=== PATIENT | male | born 1980 | race African-American/Black ===

== ENCOUNTER 2019-06-12 18:29 | Inpatient (IN) | payer MEDICAID ==
[~2019-06-12] VITALS: Ht 170.2 cm; Wt 63.1 kg
[2019-06-12] MEDS ORDERED: SODIUM CHLORIDE 0.9% 1,000 ML IV ONE (19:15)
[2019-06-12] MEDS ORDERED: cloNIDine HCL 0.1 MG TAB PO ONE (19:15)
[2019-06-12] MEDS ORDERED: ONDANSETRON HCL 4 MG/2 ML VIAL IV ONE (19:15)
[2019-06-12 19:38] LABS: Basophils # (auto) 0.1 uL; Basophils % (auto) 0.8 % (0.0-2.0); Eosinophils # (auto) 0.1 uL; Eosinophils % (auto) 0.4 % (0.0-7.0); Hematocrit 52.4 % (41.0-53.0); Hemoglobin 17.3 g/dL (13.5-17.5); Lymphocytes # (auto) 2.7 uL; Mean Corpuscular Hemoglobin 28.9 pg (28.0-32.0); Mean Corpuscular Volume 87.4 fL (80.0-100.0); Monocytes # (auto) 1.6 uL; Monocytes % (auto) 9.6 % (0.0-12.0); Neutrophils # (auto) 12.3 uL; Neutrophils % (auto) 73.2 % (37.0-80.0); Nucleated Red Blood Cells % 0.1 %; Platelet Count (auto) 377 10^3/uL (140-450); Red Cell Distribution Width 14.7 % (11.8-14.3); White Blood Cell 16.8 10^3/uL (4.4-10.8)
[2019-06-12 19:57] LABS: Anion Gap 19 (5-15); Blood Urea Nitrogen 19 mg/dL (7-18); Calcium 9.2 mg/dL (8.5-10.1); Carbon Dioxide 18 mmol/L (21-32); Chloride 94 mmol/L (98-107); Potassium 3.3 mmol/L (3.5-5.1); Sodium 131 mmol/L (136-145)
[2019-06-12 19:59] LABS: Amylase 46 U/L (25-115); Lipase 171 U/L (73-393)
[2019-06-12 20:00] LABS: Alanine Aminotransferase 20 U/L (16-61); Aspartate Aminotransferase 9 U/L (15-37); BUN/Creatinine Ratio 15.2; GFR African American 84 mL/min; GFR Non-African American 69 mL/min
[2019-06-12 20:07] LABS: Alkaline Phosphatase 103 U/L (45-117); Total Protein 8.3 g/dL (6.4-8.2)
[2019-06-12 20:09] LABS: Glucose 418 mg/dL (74-106)
[2019-06-12] MEDS ORDERED: InsuLIN REG 1unit/0.01ml Soln (100units/ml) IV ONE (20:45)
[2019-06-12] MEDS ORDERED: InsuLIN R (HUMAN) 100 UNITS in SODIUM CHL 0.9% 99 ML IV SCH (21:01)
[2019-06-12] MEDS ORDERED: D5W/SOD CHL 0.45%/KCL 20MEQ 1,000 ML IV SCH (21:01)
[2019-06-12] MEDS ORDERED: DEXTROSE (50%) 50ML SYRG IV PRN (21:15)
[2019-06-12] MEDS ORDERED: INSULIN NPH Isophane (HUMAN) 1unit/0.01ml Susp(100units/ml) SC ONE (21:27)
[2019-06-12 21:31] LABS: Magnesium 2.5 mg/dL (1.6-2.6)
[2019-06-12] MEDS: SODIUM CHLORIDE 0.9% 1,000 ML IV SCH ×2 (21:57→23:12)
[2019-06-12] MEDS ORDERED: InsuLIN REG 1unit/0.01ml Soln (100units/ml) ONE (22:00)
[2019-06-12] MEDS ORDERED: SOD CHL 0.9%/ KCL 20MEQ 1,000 ML IV ONE (22:09)
[2019-06-12] MEDS: SOD CHL 0.9%/ KCL 20MEQ 1,000 ML IV SCH (22:20)
[2019-06-12] MEDS: ACCU-CHEK COMFORT CURVE STRIP VI SCH (22:55)
[2019-06-12] MEDS ORDERED: HYDROcodone-ACET 5/325MG TAB PO PRN (23:00)
[2019-06-12] MEDS ORDERED: ONDANSETRON HCL 4 MG/2 ML VIAL IV PRN (23:00)
[2019-06-12] MEDS ORDERED: ACETAMINOPHEN 325 MG TAB PO PRN (23:00)
[2019-06-12 23:39] LABS: BUN/Creatinine Ratio 14.9; Potassium 3.3 mmol/L (3.5-5.1)
[2019-06-13] MEDS: ACCU-CHEK COMFORT CURVE STRIP VI SCH ×7 (01:39→18:14)
[2019-06-13 03:17] LABS: BUN/Creatinine Ratio 16.5; Calcium 7.8 mg/dL (8.5-10.1); Potassium 4.1 mmol/L (3.5-5.1)
[2019-06-13] MEDS: SOD CHL 0.9%/ KCL 20MEQ 1,000 ML IV SCH (04:05)
[2019-06-13] MEDS ORDERED: INSULIN LANTUS (GLARGINE) 1 /0.01ml (100units/ml) SC ONE (05:45)
[2019-06-13] MEDS ORDERED: SODIUM CHLORIDE 0.9% 1,000 ML IV SCH (07:00)
[2019-06-13] MEDS ORDERED: DEXTROSE (50%) 50ML SYRG IV PRN (07:00)
[2019-06-13 09:43] LABS: BUN/Creatinine Ratio 14.9; Calcium 7.9 mg/dL (8.5-10.1); Potassium 3.8 mmol/L (3.5-5.1)
[2019-06-13] MEDS ORDERED: MORPHINE SULF(PF) 0.5MG/ML 10ML VIAL ONE (10:01)
[2019-06-13 10:30] LABS: Alcohol, Urine < 3.0 mg/dL (0-5); Amphetamine Screen, Urine NEGATIVE (NEGATIVE); Barbiturate Scree,Urine NEGATIVE (NEGATIVE); Benzodiazephine Screen, Urine NEGATIVE (NEGATIVE); Cannabinoid Screen, Urine POSITIVE (NEGATIVE); Cocaine Screen, Urine NEGATIVE (NEGATIVE); Opiate Scree,Urine POSITIVE (NEGATIVE); Phencyclidine Screen, Urine NEGATIVE (NEGATIVE)
[2019-06-13] MEDS ORDERED: LISINOPRIL 20 MG TAB PO ONE (10:30)
[2019-06-13] MEDS ORDERED: amLODIPine BESYLATE 5 MG TAB PO ONE (10:30)
[2019-06-13] MEDS ORDERED: METOPROLOL TARTRATE 1MG/1ML-5ML VIAL IV PRN (10:30)
[2019-06-13 10:39] LABS: Urine Bacteria NONE SEEN /hpf (None Seen); Urine Blood Negative /uL (Negative); Urine Mucus FEW (None Seen); Urine Specific Gravity 1.026 (1.001-1.035); Urine WBC 5 /hpf (0 - 3)
[2019-06-13 11:02] LABS: Cholesterol 171 mg/dL (< 200); Triglycerides 210 mg/dL (< 150)
[2019-06-13 11:06] LABS: HDL Cholesterol 37 mg/dL (40-59); LDL Cholesterol 114 mg/dL (< 100)
[2019-06-13] MEDS: InsuLIN REG 1unit/0.01ml Soln (100units/ml) SC SCH ×2 (12:20→18:14)
[2019-06-13 15:31] LABS: Calcium 8.3 mg/dL (8.5-10.1); Potassium 3.4 mmol/L (3.5-5.1)
[2019-06-13 15:33] LABS: BUN/Creatinine Ratio 13.3
[2019-06-13 17:00] VITALS: BP 149/97
--- NOTE | 2019-06-13 17:05 | NUR ---
MS admit from ER CLEVELAND SANCHEZ admitted to tele/MS after SBAR received. Patient oriented to ANNABEL WEISS, RN primary RN, tele unit, room 287, bed A, and unit policies regarding patient care and visiting hours. Patient weighed by bedscale and encouraged to call if they need something. All questions and concerns addressed, patient verbalized understanding.
--- NOTE | 2019-06-13 17:24 | NUR ---
PATIENT RESTING IN BED, VS STABLE, NO C/O PAIN. PATIENT REPORTING NAUSEA ON AND OFF THROUGHOUT THE DAY. SUCTION SET UP AT BEDSIDE. BED IN LOWEST LOCKED POSITION. CALL LIGHT EDUCATION GIVEN, PATIENT WAS ABLE TO RETURN DEMONSTRATION. WILL CONTINUE TO MONITOR.
[2019-06-13 17:26] VITALS: BP 149/97
--- NOTE | 2019-06-13 18:12 | NUR ---
PATIENT DOES NOT WISH TO SET UP PASSWORD OR NEXT OF KIN/EMERGENCY CONTACT AT THIS TIME.
--- NOTE | 2019-06-13 18:58 | NUR ---
CLOSING SHIFT NOTE: PATIENT RESTING IN BED, C/O NAUSEA AND ABDOMINAL PAIN. MEDICATION FOR NAUSEA NOT DUE AT THIS TIME BUT NORCO GIVEN ORDERED. SUCTION BEING READILY USED FOR PATIENTS NAUSEA. HOB >30 DEGREES. RESPIRATIONS EVEN AND UNLABORED. CALL LIGHT WITHIN REACH, FAMILY AT BEDSIDE. WILL ENDORSE CARE TO NOC RN.
--- NOTE | 2019-06-13 19:23 | NUR ---
CARE ENDORSED TO LALO ARENAS.
--- NOTE | 2019-06-13 20:10 | NUR ---
open note assumed care of pt. upon entering room pt awake, alert and oriented x4. pt on room air no distress noted or expressed. pt denies any pain. pt updated on plan of care, no questions at this time. pt bed locked, low and 2x rails up. pt call light in reach, this nurse will round q1hr and prn.
[2019-06-13 22:00] VITALS: BP 163/107
[2019-06-13] MEDS ORDERED: ATORVASTATIN 20 MG TAB PO SCH (22:00)
[2019-06-14] MEDS: InsuLIN REG 1unit/0.01ml Soln (100units/ml) SC SCH ×2 (00:34→06:11)
[2019-06-14] MEDS: ACCU-CHEK COMFORT CURVE STRIP VI SCH ×2 (00:35→06:11)
[2019-06-14 05:00] VITALS: BP 152/91
[2019-06-14 06:33] LABS: Basophils # (auto) 0.1 uL; Basophils % (auto) 0.4 % (0.0-2.0); Eosinophils # (auto) 0.1 uL; Eosinophils % (auto) 0.7 % (0.0-7.0); Hematocrit 47.7 % (41.0-53.0); Hemoglobin 15.9 g/dL (13.5-17.5); Lymphocytes # (auto) 3.4 uL; Lymphocytes % (auto) 20.2 % (10.0-50.0); Mean Corpuscular Hemoglobin 29.3 pg (28.0-32.0); Mean Corpuscular Hgb Conc. 33.4 g/dL (32.0-36.0); Mean Corpuscular Volume 87.6 fL (80.0-100.0); Monocytes # (auto) 2.2 uL; Monocytes % (auto) 13.3 % (0.0-12.0); Neutrophils # (auto) 11.1 uL; Neutrophils % (auto) 65.4 % (37.0-80.0); Nucleated Red Blood Cells % 0.1 %; Platelet Count (auto) 353 10^3/uL (140-450); Red Blood Cells 5.44 10^6/uL (4.5-5.90); Red Cell Distribution Width 14.3 % (11.8-14.3)
[2019-06-14 06:46] LABS: Potassium 3.2 mmol/L (3.5-5.1)
[2019-06-14 06:54] LABS: Albumin 3.4 g/dL (3.4-5.0); BUN/Creatinine Ratio 13.4; Bilirubin, Total 0.8 mg/dL (0.2-1.0); Calcium 8.6 mg/dL (8.5-10.1); Total Protein 6.9 g/dL (6.4-8.2)
--- NOTE | 2019-06-14 07:30 | NUR ---
Opening Shift Note Assumed care of patient, awake and alert. No S/S of distress/SOB or pain. Instructed on POC and to call for assist PRN, will continue to monitor for changes Q1hr and PRN. buffet attendant and fall precautions in place per safety protocol. Addendum: 06/14/19 at 0840 by SABRINA SANTIZO RN RN No director product safety.
[2019-06-14 09:00] VITALS: BP 163/113
--- NOTE | 2019-06-14 09:07 | NUR ---
AMA Note C[place]AND SANCHEZ states they want to leave the hospital Against Medical Advice (AMA). Patient encouraged to stay for further treatment/stabilization. MD Milly notified of patient's wishes. Patient advised of the risks and benefits of leaving AMA. Patient verbalized understanding. Patient encouraged to return to the ER if symptoms do not improve or worsen. Tele Monitor sent down to monitor techs, monitor techs called and notified of tele monitor sent down.
[2019-06-14] MEDS ORDERED: LISINOPRIL 20 MG TAB PO SCH (10:00)
[2019-06-14] MEDS ORDERED: amLODIPine BESYLATE 5 MG TAB PO SCH (10:00)
== END 2019-06-14 09:07 | disposition left against medical advice (07) | DRG 420 ==
LOC: ER 18:32 → TELE 18:33 → TELE-WESTW 06-13 17:05
PROVIDERS: ADMIT Hospitalist; ATTEND Internal Medicine
DX: E11.10 Type 2 diabetes mellitus with ketoacidosis without coma (principal); E11.65 Type 2 diabetes mellitus with hyperglycemia; I16.0 Hypertensive urgency; D72.829 Elevated white blood cell count, unspecified; L40.9 Psoriasis, unspecified; I10 Essential (primary) hypertension; Z91.19 Patient's noncompliance with other medical treatment and regimen; Z90.49 Acquired absence of other specified parts of digestive tract; Z53.29 Procedure and treatment not carried out because of patient's decision for other reasons
CPT/HCPCS: 36415; 36600; 74176; 80048; 80053; 80061; 80307; 81001; 82010; 82150; 82805; 82962; 83036; 83690; 83735; 83930; 84100; 84443; 84484; 85025; 93005; G0378; J1815; J2405

== ENCOUNTER 2020-02-09 12:38 | Inpatient (IN) | payer MEDICAID ==
[~2020-02-09] VITALS: Ht 172.7 cm; Wt 61.0 kg
[2020-02-09] MEDS ORDERED: SODIUM CHLORIDE 0.9% 1,000 ML IV ONE ×2 (13:05)
[2020-02-09] MEDS ORDERED: InsuLIN R (HUMAN) 100 UNITS in SODIUM CHL 0.9% 99 ML IV SCH ×2 (13:12→17:11)
[2020-02-09] MEDS ORDERED: DEXTROSE (50%) 50ML SYRG IV PRN ×2 (13:15→17:15)
[2020-02-09] MEDS ORDERED: INSULIN LANTUS (GLARGINE) 1 /0.01ml (100units/ml) SC ONE ×2 (13:15→17:15)
[2020-02-09 13:30] LABS: Basophils # (auto) 0.1 10 ^3/uL (0-0.2); Basophils % (auto) 0.4 % (0.0-2.0); Eosinophils # (auto) 0 10 ^3/uL (0-0.8); Hematocrit 55.5 % (41.0-53.0); Hemoglobin 17.5 g/dL (13.5-17.5); Lymphocytes # (auto) 0.8 10 ^3/uL (0.4-5.4); Lymphocytes % (auto) 3.9 % (10.0-50.0); Mean Corpuscular Hemoglobin 28.3 pg (28.0-32.0); Mean Corpuscular Hgb Conc. 31.6 g/dL (32.0-36.0); Mean Corpuscular Volume 89.5 fL (80.0-100.0); Monocytes # (auto) 1.4 10 ^3/uL (0-1.3); Monocytes % (auto) 6.8 % (0.0-12.0); Neutrophils % (auto) 88.9 % (37.0-80.0); Platelet Count (auto) 403 10^3/uL (140-450); Red Cell Distribution Width 15.9 % (11.8-14.3); White Blood Cell 20.3 10^3/uL (4.4-10.8)
[2020-02-09] MEDS ORDERED: InsuLIN REG 1unit/0.01ml Soln (100units/ml) IV ONE (13:45)
[2020-02-09 13:52] LABS: Albumin 4.2 g/dL (3.4-5.0); Anion Gap 24 (5-15); Blood Urea Nitrogen 28 mg/dL (7-18); Calcium 9.1 mg/dL (8.5-10.1); Carbon Dioxide 11 mmol/L (21-32); Chloride 101 mmol/L (98-107); Lipase 70 U/L (73-393); Potassium 3.9 mmol/L (3.5-5.1); Sodium 136 mmol/L (136-145)
[2020-02-09] MEDS: ACCU-CHEK COMFORT CURVE STRIP VI SCH ×7 (13:52→23:35)
[2020-02-09 13:54] LABS: Alanine Aminotransferase 28 U/L (16-61); Aspartate Aminotransferase 14 U/L (15-37); Bilirubin, Total 1.2 mg/dL (0.2-1.0); GFR African American 60 mL/min; GFR Non-African American 50 mL/min; Total Protein 8.6 g/dL (6.4-8.2)
[2020-02-09 14:04] LABS: Magnesium 3.4 mg/dL (1.6-2.6); Phosphorus 4.8 mg/dL (2.5-4.90)
[2020-02-09 14:24] LABS: Urine Bacteria NONE SEEN /hpf (None Seen); Urine Blood Negative /uL (Negative); Urine Specific Gravity 1.029 (1.001-1.035); Urine WBC <1 /hpf (0 - 3)
[2020-02-09 14:24] LABS: Alkaline Phosphatase 103 U/L (45-117)
[2020-02-09 14:28] LABS: Glucose 566 mg/dL (74-106)
[2020-02-09] MEDS ORDERED: LABETALOL HCL 5 MG/ML 4ML SYRINGE IV ONE (14:45)
[2020-02-09] MEDS: SODIUM CHLORIDE 0.9% 1,000 ML IV SCH ×4 (14:49→19:11)
[2020-02-09 16:04] LABS: Alcohol, Urine < 3.0 mg/dL (0-10); Amphetamine Screen, Urine NEGATIVE (NEGATIVE); Barbiturate Scree,Urine NEGATIVE (NEGATIVE); Benzodiazephine Screen, Urine NEGATIVE (NEGATIVE); Cannabinoid Screen, Urine POSITIVE (NEGATIVE); Cocaine Screen, Urine NEGATIVE (NEGATIVE); Phencyclidine Screen, Urine NEGATIVE (NEGATIVE)
[2020-02-09 16:11] LABS: Opiate Scree,Urine NEGATIVE (NEGATIVE)
[2020-02-09] MEDS ORDERED: NITROGLYCERIN 0.4 MG SL TAB SL PRN (16:15)
[2020-02-09] MEDS ORDERED: MORPHINE SULF INJ 2 MG/ML SYRINGE 1ML IV PRN ×2 (16:15→17:15)
[2020-02-09] MEDS ORDERED: SODIUM CHLORIDE 0.9% 1,000 ML IV SCH ×3 (17:12→21:11)
[2020-02-09] MEDS ORDERED: ACETAMINOPHEN 500 MG TAB PO PRN (17:15)
[2020-02-09] MEDS: TEMAZEPAM 15 MG CAP PO PRN (21:03)
[2020-02-09] MEDS: PROMETHAZINE HCL 25 MG/ML 1ML IV PRN (21:03)
[2020-02-09 22:23] LABS: BUN/Creatinine Ratio 15.6; Calcium 8.6 mg/dL (8.5-10.1); Potassium 3.7 mmol/L (3.5-5.1)
[2020-02-10] MEDS: SODIUM CHLORIDE 0.9% 1,000 ML IV SCH ×2 (00:07→05:51)
[2020-02-10] MEDS: ACCU-CHEK COMFORT CURVE STRIP VI SCH ×9 (01:19→22:35)
[2020-02-10 02:40] LABS: Anion Gap 8 (5-15); BUN/Creatinine Ratio 16.8; Blood Urea Nitrogen 19 mg/dL (7-18); Calcium 8.2 mg/dL (8.5-10.1); Carbon Dioxide 17 mmol/L (21-32); Chloride 121 mmol/L (98-107); GFR African American 93 mL/min; GFR Non-African American 77 mL/min; Glucose 129 mg/dL (74-106); Potassium 3.8 mmol/L (3.5-5.1); Sodium 146 mmol/L (136-145)
[2020-02-10] MEDS: PROMETHAZINE HCL 25 MG/ML 1ML IV PRN (03:31)
[2020-02-10] MEDS ORDERED: LABETALOL HCL 5 MG/ML 4ML SYRINGE IV ONE (05:15)
[2020-02-10] MEDS ORDERED: DEXTROSE (50%) 50ML SYRG IV PRN ×2 (09:45→12:45)
[2020-02-10] MEDS ORDERED: INSULIN LANTUS (GLARGINE) 1 /0.01ml (100units/ml) SC SCH ×2 (10:00)
[2020-02-10 10:02] LABS: BUN/Creatinine Ratio 16.3; Calcium 8.3 mg/dL (8.5-10.1); Potassium 3.3 mmol/L (3.5-5.1)
--- NOTE | 2020-02-10 11:41 | NUR ---
Telemetry admit from ER C[place] SANCHEZ admitted to Telemetry unit. Patient oriented to primary RN, unit, room, bed, and unit policies regarding patient care. Patient now on continuous telemetry monitoring, tele box # [id number]. Patient weighed by bedscale and encouraged to call if they need something. All questions and concerns addressed, patient verbalized understanding.
[2020-02-10] MEDS ORDERED: InsuLIN REG 1unit/0.01ml Soln (100units/ml) SC SCH (12:00)
[2020-02-10] MEDS ORDERED: ACCU-CHEK COMFORT CURVE STRIP VI SCH (12:00)
[2020-02-10] MEDS ORDERED: POM (12:02)
[2020-02-10] MEDS ORDERED: METF500S PO (12:02)
[2020-02-10 12:05] LABS: Calcium 8.3 mg/dL (8.5-10.1); Potassium 3.6 mmol/L (3.5-5.1)
[2020-02-10 12:06] VITALS: BP 155/99
[2020-02-10] MEDS ORDERED: METOCLOPRAMIDE HCL 5MG/ml INJ 2ml VIAL IV PRN (12:45)
[2020-02-10] MEDS ORDERED: PANTOPRAZOLE 40 MG TAB PO ONE (12:45)
[2020-02-10 13:00] VITALS: BP 155/99
[2020-02-10 13:03] LABS: Basophils # (auto) 0 10 ^3/uL (0-0.2); Basophils % (auto) 0.2 % (0.0-2.0); Eosinophils # (auto) 0 10 ^3/uL (0-0.8); Eosinophils % (auto) 0.1 % (0.0-7.0); Hematocrit 52.1 % (41.0-53.0); Hemoglobin 16.4 g/dL (13.5-17.5); Lymphocytes # (auto) 1.9 10 ^3/uL (0.4-5.4); Lymphocytes % (auto) 10.5 % (10.0-50.0); Mean Corpuscular Hemoglobin 28.8 pg (28.0-32.0); Mean Corpuscular Hgb Conc. 31.5 g/dL (32.0-36.0); Mean Corpuscular Volume 91.2 fL (80.0-100.0); Monocytes # (auto) 2.3 10 ^3/uL (0-1.3); Monocytes % (auto) 12.8 % (0.0-12.0); Neutrophils # (auto) 13.5 10 ^3/uL (1.6-8.6); Neutrophils % (auto) 76.4 % (37.0-80.0); Nucleated Red Blood Cells % 0.2 %; Platelet Count (auto) 306 10^3/uL (140-450); Red Blood Cells 5.71 10^6/uL (4.5-5.90); Red Cell Distribution Width 15.8 % (11.8-14.3); White Blood Cell 17.7 10^3/uL (4.4-10.8)
[2020-02-10 13:17] LABS: Magnesium 3.1 mg/dL (1.6-2.6); Phosphorus 2.5 mg/dL (2.5-4.90)
[2020-02-10 15:48] LABS: BUN/Creatinine Ratio 14.6; Calcium 8.4 mg/dL (8.5-10.1); Potassium 3.3 mmol/L (3.5-5.1)
[2020-02-10 16:46] LABS: Free T3 1.56 pg/mL (2.3-4.2); Free T4 (Free Thyroxine) 1.06 ng/dL (0.89-1.76)
[2020-02-10 16:54] VITALS: BP 185/120
--- NOTE | 2020-02-10 17:06 | NUR ---
Elevated Blood Pressure Notified hospitalist of patients elevated blood pressure 185/120. Telephone orders received, read back and verified and entered in eMAR.
[2020-02-10] MEDS: LABETALOL HCL 5 MG/ML 4ML SYRINGE IV PRN (17:36)
[2020-02-10] MEDS: InsuLIN REG 1unit/0.01ml Soln (100units/ml) SC SCH ×2 (17:52→22:53)
[2020-02-10 22:00] VITALS: BP 147/97
[2020-02-10] MEDS: METOPROLOL TARTRATE 25 MG TAB PO SCH (22:34)
[2020-02-10] MEDS: PANTOPRAZOLE 40 MG TAB PO SCH (22:34)
[2020-02-10] MEDS: TEMAZEPAM 15 MG CAP PO PRN (22:44)
[2020-02-11 05:04] VITALS: BP 139/99
[2020-02-11] MEDS: ACCU-CHEK COMFORT CURVE STRIP VI SCH ×4 (06:38→21:59)
[2020-02-11] MEDS: INSULIN LANTUS (GLARGINE) 1 /0.01ml (100units/ml) SC SCH (06:39)
[2020-02-11] MEDS: InsuLIN REG 1unit/0.01ml Soln (100units/ml) SC SCH ×4 (06:40→22:00)
[2020-02-11 08:00] VITALS: BP 154/104
[2020-02-11] MEDS: METOPROLOL TARTRATE 25 MG TAB PO SCH ×2 (09:23→21:59)
[2020-02-11] MEDS: PANTOPRAZOLE 40 MG TAB PO SCH ×2 (09:23→21:15)
[2020-02-11] MEDS: traMADol HCL 50 MG TAB PO PRN ×2 (09:24→16:50)
[2020-02-11] MEDS ORDERED: PANTOPRAZOLE 40 MG TAB PO SCH (10:00)
[2020-02-11] MEDS ORDERED: amLODIPine BESYLATE 5 MG TAB PO ONE (10:45)
[2020-02-11 12:00] VITALS: BP 166/117
[2020-02-11 13:00] VITALS: BP 146/102
[2020-02-11] MEDS ORDERED: THROAT LOZENGES(CEPASTAT) MT PRN (13:15)
[2020-02-11] MEDS: metroNIDAZOLE 500MG/100ML 100 ML IV SCH ×2 (13:59→21:15)
--- NOTE | 2020-02-11 14:44 | NUR ---
Nutrition Assessment Notes Please refer to link for full assessment notes. Est Energy needs: 1038-6181 kcals (25-30 kcal/kgBW) Est Protein needs: 47-58 gms/day (0.8-1.0 gm/kgBW) Will continue to monitor and reassess prn. Addendum: 02/11/20 at [address] Amended: Links added.
[2020-02-11 17:00] VITALS: BP 142/79
--- NOTE | 2020-02-11 20:00 | NUR ---
Opening Shift Note Assumed care of patient, awake and alert. No S/S of distress/SOB or pain. Instructed on POC and to call for assist PRN, will continue to monitor for changes Q1hr and PRN.
[2020-02-11] MEDS: TEMAZEPAM 15 MG CAP PO PRN (21:15)
[2020-02-11 23:54] VITALS: BP 159/106
[2020-02-12 05:00] VITALS: BP 159/80
[2020-02-12] MEDS: metroNIDAZOLE 500MG/100ML 100 ML IV SCH ×2 (05:24→14:00)
--- NOTE | 2020-02-12 06:00 | NUR ---
IV removal IV DC'd in the left A.c.with sterile technique, catheter fully intact. Pressure dressing applied to site. Patient tolerated procedure well.Due to leaking.
[2020-02-12] MEDS: InsuLIN REG 1unit/0.01ml Soln (100units/ml) SC SCH ×2 (06:17→12:25)
[2020-02-12] MEDS: INSULIN LANTUS (GLARGINE) 1 /0.01ml (100units/ml) SC SCH (06:20)
[2020-02-12] MEDS: ACCU-CHEK COMFORT CURVE STRIP VI SCH ×2 (06:20→11:45)
[2020-02-12 06:33] LABS: BUN/Creatinine Ratio 11.1; Calcium 8.3 mg/dL (8.5-10.1)
[2020-02-12 06:37] LABS: Basophils # (auto) 0 10 ^3/uL (0-0.2); Basophils % (auto) 0.2 % (0.0-2.0); Eosinophils # (auto) 0.1 10 ^3/uL (0-0.8); Eosinophils % (auto) 1.6 % (0.0-7.0); Hematocrit 49.9 % (41.0-53.0); Hemoglobin 16.6 g/dL (13.5-17.5); Lymphocytes # (auto) 2.7 10 ^3/uL (0.4-5.4); Lymphocytes % (auto) 30.2 % (10.0-50.0); Mean Corpuscular Hemoglobin 29.3 pg (28.0-32.0); Mean Corpuscular Hgb Conc. 33.3 g/dL (32.0-36.0); Monocytes # (auto) 1.3 10 ^3/uL (0-1.3); Monocytes % (auto) 14.1 % (0.0-12.0); Neutrophils # (auto) 4.8 10 ^3/uL (1.6-8.6); Neutrophils % (auto) 53.9 % (37.0-80.0); Nucleated Red Blood Cells % 0.2 %; Platelet Count (auto) 305 10^3/uL (140-450); Red Blood Cells 5.67 10^6/uL (4.5-5.90); Red Cell Distribution Width 14.8 % (11.8-14.3); White Blood Cell 8.9 10^3/uL (4.4-10.8)
[2020-02-12 06:42] LABS: Potassium 2.9 mmol/L (3.5-5.1)
--- NOTE | 2020-02-12 06:43 | NUR ---
Called/paged Rafael Araya. called re:pot.result of 2.9 . Waiting for call back. Continue care.
--- NOTE | 2020-02-12 06:50 | NUR ---
returned call Rafael Figueredo. returned call, updated on patient status and reason for call, orders received of potassium tab. 40meq.p.o x one and one pot. K-rider 40meq.i.v.p.b. Continue care.
[2020-02-12] MEDS ORDERED: POTASSIUM CHL 20 Meq TABLET PO ONE (07:00)
[2020-02-12] MEDS: POTASSIUM CHL 20MEQ/100ML 100 ML IV SCH ×2 (07:03→11:35)
--- NOTE | 2020-02-12 07:03 | NUR ---
Pot.rider 20meq no. one hang.
--- NOTE | 2020-02-12 07:23 | NUR ---
Report given to Linda Holguin, patient is resting no distress.
[2020-02-12 08:00] VITALS: BP 145/109
--- NOTE | 2020-02-12 08:00 | NUR ---
Morning note Patient resting in bed with even and unlabored respirations, no distress noted. Instructed patient on POC, fall precautions and to call for assistance as needed. Patient verbalized understanding. Fall precautions in place with call light within reach.
[2020-02-12] MEDS ORDERED: METOPROLOL TARTRATE 50 MG TAB PO SCH (10:00)
[2020-02-12] MEDS ORDERED: amLODIPine BESYLATE 5 MG TAB PO SCH (10:00)
[2020-02-12] MEDS: PANTOPRAZOLE 40 MG TAB PO SCH (10:38)
--- NOTE | 2020-02-12 10:44 | NUR ---
RE: behavior Patient has tense facial expression and he his moving his leg back and forth in a fast motion. Patient stated "I just want to go! I don't like laying here." Activity education provided to the patient. Patient verbalized understanding and stated "I might just sign myself out later." Respirations even and unlabored, no distress noted.
--- NOTE | 2020-02-12 11:49 | NUR ---
Patient okay for discharge per Mrs. Cheng N.P. Addendum: 02/12/20 at 1215 by Caro West RN Notified Mrs. Anand of patient's elevated BP of 161/111 mmHg at 1214. Mrs. Anand verbalized understanding. Ordered PRN medication to be administered.
[2020-02-12 12:00] VITALS: BP 161/111
--- NOTE | 2020-02-12 12:07 | NUR ---
MD was at bedside - Dr. Mandujano Notified MD RE: patient's recent elevated BP. MD verbalized understanding.
[2020-02-12] MEDS: LABETALOL HCL 5 MG/ML 4ML SYRINGE IV PRN (12:24)
--- NOTE | 2020-02-12 14:24 | NUR ---
Stephanie Mrs. Trevino Anand, N.P., RE: reassessment BP Reassessment BP 140/113 mmHg. Patient resting in bed with even and unlabored respirations, no distress noted. Patient stated "I just want to go home today. I got a big fishing trip tomorrow." Addendum: 02/12/20 at 1427 by Caro West RN Notified Mrs. Anand of patient's reassessment BP of 140/113 mmHg. Mrs. Anand verbalized understanding. Patient okay to be discharged per MD order.
--- NOTE | 2020-02-12 15:12 | NUR ---
Discharge Discharge education and paperwork provided to the patient per MD order. Patient verbalized understanding. IV removed with clean technique, catheter intact. Dressing applied. Patient tolerated well, no trauma to site. Telemonitor removed and returned. Patient reports having all personal belongings. Respirations even and unlabored, no distress noted. Patient refused wheelchair. Patient ambulated with a steady gait to hospital lobby accompanied by staff member.
== END 2020-02-12 15:10 | disposition home or self-care (01) | DRG 420 ==
LOC: ER 12:38 → TELE 12:39 → TELE-CENTR 02-10 12:01
PROVIDERS: ADMIT Internal Medicine; ATTEND Internal Medicine
DX: E11.10 Type 2 diabetes mellitus with ketoacidosis without coma (principal); E86.0 Dehydration; D72.829 Elevated white blood cell count, unspecified; E87.6 Hypokalemia; I47.1 Supraventricular tachycardia; N17.0 Acute kidney failure with tubular necrosis; F19.10 Other psychoactive substance abuse, uncomplicated; N18.9 Chronic kidney disease, unspecified; I12.9 Hypertensive chronic kidney disease with stage 1 through stage 4 chronic kidney disease, or unspecified chronic kidney disease; Z83.3 Family history of diabetes mellitus; Z90.49 Acquired absence of other specified parts of digestive tract; Z91.14 Patient's other noncompliance with medication regimen; Z79.84 Long term (current) use of oral hypoglycemic drugs; Z79.4 Long term (current) use of insulin; I16.1 Hypertensive emergency; E11.22 Type 2 diabetes mellitus with diabetic chronic kidney disease
CPT/HCPCS: 36415; 36600; 71045; 80048; 80053; 80307; 81001; 82010; 82533; 82805; 82962; 83036; 83605; 83690; 83735; 83930; 84100; 84439; 84443; 84481; 84484; 85025; 87040; 87077; 87186; 96361; 96365; 96366; 96375; 96376; 99291; G0378; J1815; J3480; J3490

== ENCOUNTER 2022-05-17 11:49 | Inpatient (IN) | payer MEDICAID ==
[~2022-05-17] VITALS: Ht 172.7 cm; Wt 63.2 kg
[~2022-05-17 11:49] MED LIST: METF500S PO; POM
[2022-05-17 13:17] LABS: Basophils # (auto) 0.1 10 ^3/uL (0-0.2); Basophils % (auto) 0.9 % (0.0-2.0); Eosinophils # (auto) 0.1 10 ^3/uL (0-0.8); Hematocrit 44.5 % (41.0-53.0); Hemoglobin 14.4 g/dL (13.5-17.5); Lymphocytes # (auto) 2.3 10 ^3/uL (0.4-5.4); Lymphocytes % (auto) 23.2 % (10.0-50.0); Mean Corpuscular Hemoglobin 27.8 pg (28.0-32.0); Mean Corpuscular Hgb Conc. 32.3 g/dL (32.0-36.0); Mean Corpuscular Volume 86.1 fL (80.0-100.0); Monocytes # (auto) 0.8 10 ^3/uL (0-1.3); Monocytes % (auto) 8.3 % (0.0-12.0); Neutrophils # (auto) 6.5 10 ^3/uL (1.6-8.6); Neutrophils % (auto) 66.6 % (37.0-80.0); Nucleated Red Blood Cells % 0.3 %; Red Blood Cells 5.17 10^6/uL (4.5-5.90); Red Cell Distribution Width 14.5 % (11.8-14.3); White Blood Cell 9.8 10^3/uL (4.4-10.8)
[2022-05-17] MEDS ORDERED: SODIUM CHLORIDE 0.9% 1,000 ML IV ONE (13:30)
[2022-05-17 13:39] LABS: Albumin 3.6 g/dL (3.4-5.0); Calcium 9.2 mg/dL (8.5-10.1); Potassium 3.9 mmol/L (3.5-5.1)
[2022-05-17 13:42] LABS: BUN/Creatinine Ratio 13.1; Bilirubin, Total 0.3 mg/dL (0.2-1.0); Total Protein 6.8 g/dL (6.4-8.2)
[2022-05-17 14:20] LABS: INR 1.02 (0.9-1.15); Partial Thromboplastin Time 27.3 sec (24.6-33.4)
[2022-05-17] MEDS ORDERED: SODIUM CHLORIDE 0.9% 1,000 ML IV SCH (15:30)
[2022-05-17] MEDS ORDERED: ACETAMINOPHEN 325 MG TAB PO PRN (15:30)
[2022-05-17] MEDS ORDERED: ONDANSETRON HCL 4 MG/2 ML VIAL IV PRN (15:30)
[2022-05-17] MEDS ORDERED: CARV12.544 PO (16:07)
[2022-05-17] MEDS ORDERED: HYDR25TA5 PO (16:07)
[2022-05-17] MEDS ORDERED: ATOR40TA52 PO (16:07)
[2022-05-17] MEDS ORDERED: PANTOPRAZOLE 40 MG/10 ML VIAL INJ IV ONE (16:15)
[2022-05-17] MEDS ORDERED: ASPirin 325 MG TAB PO ONE (16:15)
[2022-05-17] MEDS ORDERED: hydrALAZINE HCL 20 MG/ML VL IV PRN (16:30)
[2022-05-17 23:17] LABS: Urine Bacteria NONE SEEN /hpf (None Seen); Urine Blood Negative /uL (Negative); Urine Specific Gravity 1.017 (1.001-1.035); Urine WBC <1 /hpf (0 - 3)
[2022-05-17 23:35] LABS: Alcohol, Urine < 3.0 mg/dL (0-10); Amphetamine Screen, Urine NEGATIVE (NEGATIVE); Barbiturate Scree,Urine NEGATIVE (NEGATIVE); Benzodiazephine Screen, Urine NEGATIVE (NEGATIVE); Cannabinoid Screen, Urine POSITIVE (NEGATIVE); Cocaine Screen, Urine NEGATIVE (NEGATIVE); Opiate Scree,Urine NEGATIVE (NEGATIVE); Phencyclidine Screen, Urine NEGATIVE (NEGATIVE)
[2022-05-18 04:00] VITALS: BP 132/78
[2022-05-18] MEDS ORDERED: ENOXAPARIN SOD 40 MG/0.4 ML SYRINGE SC SCH (10:00)
[2022-05-18] MEDS ORDERED: PANTOPRAZOLE 40 MG/10 ML VIAL INJ IV SCH (10:00)
[2022-05-18] MEDS ORDERED: ASPirin 81 mg TAB PO SCH (10:00)
== END 2022-05-18 06:45 | disposition left against medical advice (07) | DRG 861 ==
LOC: ER 11:49 → OVERFLOW 15:29
PROVIDERS: ADMIT Nurse Practitioner Family; ATTEND Nurse Practitioner Family
DX: R53.1 Weakness (principal); E11.9 Type 2 diabetes mellitus without complications; I10 Essential (primary) hypertension; F12.90 Cannabis use, unspecified, uncomplicated; Z20.822 Contact with and (suspected) exposure to COVID-19; Z53.29 Procedure and treatment not carried out because of patient's decision for other reasons; Z83.3 Family history of diabetes mellitus; I69.320 Aphasia following cerebral infarction; R47.81 Slurred speech; Z86.73 Personal history of transient ischemic attack (TIA), and cerebral infarction without residual deficits
CPT/HCPCS: 36415; 70450; 71045; 80053; 80307; 81001; 83735; 85025; 85610; 85730; 87426; 93886; 96360; 96361; C9113; G0378

== ENCOUNTER 2023-02-06 12:20 | Inpatient (IN) | payer MEDICAID ==
[~2023-02-06] VITALS: Ht 172.7 cm; Wt 68.1 kg
[~2023-02-06 12:20] MED LIST changes: +ATOR40TA52 PO; +CARV12.544 PO; +HYDR25TA5 PO; -METF500S PO; +METF500S3 PO
[2023-02-06] MEDS ORDERED: PANTOPRAZOLE 40 MG/10 ML VIAL INJ IV ONE (13:00)
[2023-02-06] MEDS ORDERED: SODIUM CHLORIDE 0.9% 1,000 ML IV ONE (13:00)
[2023-02-06] MEDS ORDERED: PROCHLORPERAZINE EDISYLATE 5 MG/ML 2ML VIAL IV ONE (13:00)
[2023-02-06 13:20] LABS: Basophils # (auto) 0.1 10 ^3/uL (0-0.2); Basophils % (auto) 0.4 % (0.0-2.0); Eosinophils # (auto) 0 10 ^3/uL (0-0.8); Nucleated Red Blood Cells % 0.1 %; Red Cell Distribution Width 14.8 % (11.8-14.3)
[2023-02-06 13:22] LABS: Eosinophils % (auto) 0.1 % (0.0-7.0); Hematocrit 54.5 % (41.0-53.0); Hemoglobin 17.7 g/dL (13.5-17.5); Lymphocytes # (auto) 2.5 10 ^3/uL (0.4-5.4); Lymphocytes % (auto) 15.8 % (10.0-50.0); Mean Corpuscular Hemoglobin 28.1 pg (28.0-32.0); Mean Corpuscular Hgb Conc. 32.4 g/dL (32.0-36.0); Mean Corpuscular Volume 86.8 fL (80.0-100.0); Monocytes # (auto) 0.8 10 ^3/uL (0-1.3); Monocytes % (auto) 5.4 % (0.0-12.0); Neutrophils # (auto) 12.3 10 ^3/uL (1.6-8.6); Neutrophils % (auto) 78.3 % (37.0-80.0); Red Blood Cells 6.28 10^6/uL (4.5-5.90); White Blood Cell 15.7 10^3/uL (4.4-10.8)
[2023-02-06 13:39] LABS: Albumin 4.7 g/dL (3.4-5.0); Calcium 10.5 mg/dL (8.5-10.1); Potassium 3.8 mmol/L (3.5-5.1)
[2023-02-06 13:45] LABS: BUN/Creatinine Ratio 15.8 (10.0-20.0); Bilirubin, Total 1.2 mg/dL (0.2-1.0); Total Protein 8.5 g/dL (6.4-8.2)
[2023-02-06] MEDS ORDERED: SODIUM CHLORIDE 0.9% 2,000 ML IV ONE (15:15)
[2023-02-06] MEDS ORDERED: DOCUSATE SOD 100 MG CAP PO PRN (15:15)
[2023-02-06] MEDS ORDERED: INSULIN LANTUS (GLARGINE) 1 /0.01ml (100units/ml) SC ONE (15:15)
[2023-02-06] MEDS ORDERED: InsuLIN R (HUMAN) 100 UNITS in SODIUM CHL 0.9% 99 ML IV SCH (15:15)
[2023-02-06] MEDS ORDERED: DEXTROSE (50%) 50ML SYRG IV PRN ×2 (15:15→22:30)
[2023-02-06] MEDS ORDERED: SODIUM CHLORIDE 0.9% 1,000 ML IV SCH ×4 (15:15→21:15)
[2023-02-06] MEDS ORDERED: ONDANSETRON HCL 4 MG/2 ML VIAL IV PRN (15:15)
[2023-02-06] MEDS ORDERED: MORPHINE SULFATE INJ 2 MG/ml SYRG IV PRN (15:15)
[2023-02-06 15:58] LABS: INR 1.11 (0.9-1.15)
[2023-02-06 16:16] LABS: Urine Bacteria NONE SEEN /hpf (None Seen); Urine Blood Negative /uL (Negative); Urine Hyaline Cast FEW /lpf (0 - 2); Urine Mucus FEW (None Seen); Urine Specific Gravity 1.031 (1.001-1.035); Urine WBC 2 /hpf (0 - 3)
[2023-02-06 16:27] LABS: Sodium Urine 22 mmol/L (40-220)
[2023-02-06] MEDS ORDERED: ACCU-CHEK COMFORT CURVE STRIP VI SCH (16:30)
[2023-02-06 16:37] LABS: Creatinine, Urine 296 mg/dL (30.0-125.0)
[2023-02-06 16:41] LABS: BUN/Creatinine Ratio 17.4 (10.0-20.0); Calcium 8.9 mg/dL (8.5-10.1); Magnesium 2.4 mg/dL (1.6-2.6); Phosphorus 3.3 mg/dL (2.5-4.90); Potassium 3.5 mmol/L (3.5-5.1)
[2023-02-06] MEDS: ACCU-CHEK COMFORT CURVE STRIP VI SCH ×3 (17:31→20:35)
[2023-02-06 17:39] LABS: Lactic Acid w/Reflex 3.3 mmol/L (0.4-2.0)
[2023-02-06 20:53] LABS: BUN/Creatinine Ratio 19.3 (10.0-20.0); Calcium 8.1 mg/dL (8.5-10.1); Potassium 3.3 mmol/L (3.5-5.1)
[2023-02-06] MEDS ORDERED: ATORVASTATIN 20 MG TAB PO SCH (22:00)
[2023-02-06] MEDS ORDERED: CARVEDILOL 12.5 MG TAB PO SCH (22:00)
[2023-02-06] MEDS ORDERED: PANTOPRAZOLE 40 MG/10 ML VIAL INJ IV SCH (22:00)
[2023-02-06] MEDS ORDERED: hydrALAZINE HCL 20 MG/ML VL IV PRN (22:45)
[2023-02-07] MEDS ORDERED: InsuLIN REG 1unit/0.01ml Soln (100units/ml) SC SCH
[2023-02-07] MEDS ORDERED: ACCU-CHEK COMFORT CURVE STRIP VI SCH
[2023-02-07 02:26] VITALS: BP 159/95
[2023-02-07] MEDS ORDERED: HCTZ 25 MG TAB PO SCH (10:00)
[2023-02-07] MEDS ORDERED: INSULIN LANTUS (GLARGINE) 1 /0.01ml (100units/ml) SC SCH (10:00)
[2023-02-08] MEDS ORDERED: amLODIPine BESYLATE 5 MG TAB PO SCH (10:00)
== END 2023-02-07 02:37 | disposition left against medical advice (07) | DRG 420 ==
LOC: ER 12:20 → OVERFLOW 15:15
PROVIDERS: ADMIT Nurse Practitioner Family; ATTEND Nurse Practitioner Family
DX: E11.10 Type 2 diabetes mellitus with ketoacidosis without coma (principal); N17.9 Acute kidney failure, unspecified; I69.354 Hemiplegia and hemiparesis following cerebral infarction affecting left non-dominant side; E78.5 Hyperlipidemia, unspecified; D72.829 Elevated white blood cell count, unspecified; E86.0 Dehydration; F12.10 Cannabis abuse, uncomplicated; Z53.29 Procedure and treatment not carried out because of patient's decision for other reasons; N18.9 Chronic kidney disease, unspecified; I12.9 Hypertensive chronic kidney disease with stage 1 through stage 4 chronic kidney disease, or unspecified chronic kidney disease; E11.22 Type 2 diabetes mellitus with diabetic chronic kidney disease; R00.0 Tachycardia, unspecified
CPT/HCPCS: 36415; 36600; 71046; 80048; 80053; 81001; 82010; 82570; 82805; 82962; 83036; 83605; 83735; 83930; 84100; 84300; 85025; 85610; 96361; 96365; 96375; 96376; C9113; G0378; J1815